=== PATIENT | male | born 1935 | race Two or more races ===

== ENCOUNTER 2025-07-22 17:48 | Emergency (ER) | payer OTHER ==
[~2025-07-22] VITALS: Ht 182.9 cm; Wt 109.0 kg
[2025-07-22] MEDS: SODIUM CHLORIDE 0.9% 1,000 ML IV ONE (18:17)
[2025-07-22] MEDS: PIPERACILLIN/TAZO 3.375G/50ML 50 ML IV ONE (18:29)
[2025-07-22 18:37] LABS: BASOPHILS % 0.8 % (0.0-2.0); EOSINOPHILS % 3.7 % (0.0-5.0); HEMATOCRIT. 36.6 % (42.0-52.0); HEMOGLOBIN. 12.4 g/dL (14.0-18.0); LYMPHOCYTES % 14.3 % (20.0-50.0); MEAN PLATELET VOLUME 7.0 fl (7.4-10.4); MONOCYTES % 10.3 % (2.0-8.0); NEUTROPHILS % 70.9 % (40.0-76.0); PLATELET 268 x1000/uL (130-400); RED BLOOD CELL COUNT 4.23 mill/uL (4.7-6.1); RED CELL DISTRIBUTION WIDTH 15.9 % (11.6-14.6)
[2025-07-22 18:50] LABS: CREATININE 1.4 mg/dL (0.6-1.3)
[2025-07-22 18:51] LABS: TROPONIN I HIGH SENSITIVITY 20 ng/L (3.0-53); UREA NITROGEN BLOOD 35 mg/dL (9-23)
[2025-07-22 18:52] LABS: ASPARTATE AMINOTRANSFERASE 15 IU/L (<34)
[2025-07-22 18:53] LABS: BILIRUBIN DIRECT 0.1 mg/dL (<=3.0); BILIRUBIN TOTAL 0.5 mg/dL (0.1-1.0); PROTEIN TOTAL 7.2 g/dL (6.0-8.3)
[2025-07-22 18:57] LABS: INR 1.0
[2025-07-22] MEDS: VANCOMYCIN 1G PREMIX 200 ML IV ONE (19:52)
[2025-07-22] MEDS: IPRATROPIUM/ALBUTEROL 0.5-3(2.5)MG/3ML NEB HHN ONE (20:46)
[2025-07-22 20:47] VITALS: PULSE 62; RESP 20; O2SAT 96
[2025-07-22 21:20] LABS: INFLUENZA TYPE A Presumptive Negative (Pres. Neg.); INFLUENZA TYPE B Presumptive Negative (Pres. Neg.)
[2025-07-22 21:21] LABS: RESPIRATORY SYNCYTIAL VIRUS Not Detected (Not Detectd)
[2025-07-22 22:33] VITALS: BP 141/80; PULSE 92; RESP 17; TEMP 36.7; O2SAT 97
== END 2025-07-22 23:27 | disposition short-term general hospital (02) ==
LOC: ER 17:48 → CMPBEDREQ 07-23 10:54
DX: I11.0 Hypertensive heart disease with heart failure (principal); I50.9 Heart failure, unspecified; J44.0 Chronic obstructive pulmonary disease with (acute) lower respiratory infection; N17.9 Acute kidney failure, unspecified; E11.9 Type 2 diabetes mellitus without complications; Z20.822 Contact with and (suspected) exposure to COVID-19; Z55.6 Problems related to health literacy; Z79.899 Other long term (current) drug therapy
CPT/HCPCS: 99291; 96365; 71045; 96367; 87426; 80076; 80048; 83880; 83605; 83690; 83735; 85025; 85379; 85610; 85730; 87420; 87040; 84484; 87804 ×2; 36415; 84145; 94640; 93005; 98960; J2543; J3373; J7030; 94070; 94664